=== PATIENT | female | born 1955 | race Caucasian/White ===

== ENCOUNTER 2023-11-02 11:43 | Emergency (ER) | payer MEDICARE ==
[~2023-11-02] VITALS: Ht 165.1 cm; Wt 82.0 kg
[2023-11-02 11:48] VITALS: TEMP 97.9; O2SAT 100
[2023-11-02 12:21] LABS: BASOPHILS % 1.4 % (0.0-2.0); DIFFERENTIAL COMMENT 0; HEMATOCRIT. 37.1 % (36.0-48.0); HEMOGLOBIN. 12.1 g/dL (12.0-16.0); LYMPHOCYTES % 16.1 % (20.0-50.0); MEAN CORPUSCULAR HEMOGLOBIN 24.8 pg (28.0-32.0); MEAN CORPUSCULAR HGB CONC 32.5 g/dL (31.0-37.0); MEAN CORPUSCULAR VOLUME 76.3 fL (81.0-99.0); MEAN PLATELET VOLUME 8.2 fl (7.4-10.4); MONOCYTES % 6.4 % (2.0-8.0); NEUTROPHILS % 72.1 % (40.0-76.0); PLATELET 419 x1000/uL (130-400); RED BLOOD CELL COUNT 4.86 mill/uL (4.2-5.4); RED CELL DISTRIBUTION WIDTH 16.3 % (11.6-14.6); WHITE BLOOD COUNT 12.5 x1000/uL (4.5-11.0)
[2023-11-02 13:16] LABS: CHLORIDE 107 mEq/L (98-107); POTASSIUM 4.6 mEq/L (3.5-5.1); SODIUM 139 mEq/L (136-145)
[2023-11-02 13:17] LABS: CALCIUM 9.5 mg/dL (8.7-10.4); CARBON DIOXIDE 23 mEq/L (21-32)
[2023-11-02 13:22] LABS: CREATININE 0.7 mg/dL (0.6-1.0); GLUCOSE 149 mg/dL (70-105); UREA NITROGEN BLOOD 19 mg/dL (9-23)
[2023-11-02 13:24] LABS: ALANINE AMINOTRANSFERASE 24 IU/L (10-49); ALBUMIN 4.3 g/dL (3.2-4.8); ASPARTATE AMINOTRANSFERASE 32 IU/L (<34); BILIRUBIN DIRECT 0.1 mg/dL (<=3.0); BILIRUBIN TOTAL 0.2 mg/dL (0.1-1.0); PROTEIN TOTAL 6.9 g/dL (6.0-8.3)
[2023-11-02 13:33] LABS: TROPONIN I HIGH SENSITIVITY < 4 ng/L (3.0-34)
[2023-11-02] MEDS: OXYCODONE HCL/ACETAMINOPHEN 5/325MG TABLET PO ONE (13:44)
[2023-11-02] MEDS: ONDANSETRON 4MG ODT PO ONE (13:45)
[2023-11-02] MEDS ORDERED: BUPR1FIL3 SL (14:42)
[2023-11-02] MEDS ORDERED: ONDA4TAB50 MT (14:42)
[2023-11-02] MEDS: TRAMADOL 50MG TABLET PO ONE (14:49)
[2023-11-02] MEDS: MORPHINE SULFATE 4 MG/ML INJ (FOR IV/IM USE) IM ONE (15:00)
[2023-11-02] MEDS: MAGNESIUM/ALUMINUM HYDROXIDE/SIMETHICONE 30ML UDC PO STA (16:11)
[2023-11-02] MEDS: ONDANSETRON HCL 4MG/2ML INJ IV STA (16:11)
[2023-11-02] MEDS: KETOROLAC 30MG/ML VIAL IV STA (16:11)
[2023-11-02] MEDS: METOCLOPRAMIDE HCL 10MG/2ML VIAL IV STA (16:12)
[2023-11-02] MEDS: SODIUM CHLORIDE 0.9% 1,000 ML IV ONE (16:12)
[2023-11-02] MEDS: FAMOTIDINE 20MG/2ML VIAL IV STA (16:12)
[2023-11-02] MEDS: MORPHINE SULFATE 4 MG/ML INJ (FOR IV/IM USE) IV STA (16:12)
[2023-11-02 16:27] LABS: BASOPHILS % 0.7 % (0.0-2.0); DIFFERENTIAL COMMENT 0; EOSINOPHILS % 0.3 % (0.0-5.0); HEMATOCRIT. 38.8 % (36.0-48.0); HEMOGLOBIN. 12.2 g/dL (12.0-16.0); LYMPHOCYTES % 9.7 % (20.0-50.0); MEAN CORPUSCULAR HEMOGLOBIN 24.7 pg (28.0-32.0); MEAN CORPUSCULAR HGB CONC 31.5 g/dL (31.0-37.0); MEAN CORPUSCULAR VOLUME 78.4 fL (81.0-99.0); MEAN PLATELET VOLUME 8.2 fl (7.4-10.4); MONOCYTES % 2.4 % (2.0-8.0); NEUTROPHILS % 86.9 % (40.0-76.0); PLATELET 451 x1000/uL (130-400); RED BLOOD CELL COUNT 4.94 mill/uL (4.2-5.4); RED CELL DISTRIBUTION WIDTH 16.3 % (11.6-14.6); WHITE BLOOD COUNT 13.2 x1000/uL (4.5-11.0)
[2023-11-02 16:34] LABS: CHLORIDE 103 mEq/L (98-107); POTASSIUM 3.8 mEq/L (3.5-5.1); SODIUM 137 mEq/L (136-145)
[2023-11-02 16:35] LABS: CALCIUM 9.6 mg/dL (8.7-10.4); CARBON DIOXIDE 24 mEq/L (21-32)
[2023-11-02 16:36] LABS: PROTHROMBIN TIME 11.6 sec (9.6-11.0)
[2023-11-02 16:40] LABS: CREATININE 0.8 mg/dL (0.6-1.0); GLUCOSE 147 mg/dL (70-105); UREA NITROGEN BLOOD 15 mg/dL (9-23)
[2023-11-02 16:41] LABS: ETHANOL BLOOD < 10 mg/dL (<10)
[2023-11-02 17:21] VITALS: BP 159/91; PULSE 70; RESP 14
== END 2023-11-02 18:23 | disposition home or self-care (01) ==
LOC: ER 11:43
DX: M54.9 Dorsalgia, unspecified (principal)
CPT/HCPCS: 80076; 80048; 80320; 83690; 85025; 85610; 84484; 36415; 74176; 93005; 96361; 96372; 96374; 96375; 99285; Q0162; J3490; J1885; J2765; J2405; J2270; J7030; G0480